=== PATIENT | female | born 1985 | race Caucasian/White ===

== ENCOUNTER → 2024-01-30 | Outpatient (CLI) | payer OTHER ==
--- NOTE | 2024-02-01 09:56 | US ---
EXAMINATION TYPE: US liver DATE OF EXAM: 01/30/2024 COMPARISON: NONE CLINICAL INDICATION: Female, 38 years old with history of R94.5 ABNORMAL RESULTS OF LIVER FUNCTION ST UDIES; TECHNIQUE: Multiple sonographic images of the right upper quadrant are obtained. FINDINGS: EXAM MEASUREMENTS: Liver Length: 13.9 cm Gallbladder Wall: 0.11 cm CBD: 0.28 cm Right Kidney: 10.0 x 4.0 x 3.9 cm SWEET POTATO DISINTEGRATOR NOTES: Pancreas: wnl Liver: Increased echogenicity Gallbladder: wnl Evidence for sonographic Manrique's sign: No CBD: wnl Right Kidney: wnl IMPRESSION: Correlate for mild hepatic steatosis.
== END | disposition home or self-care (01) ==
LOC: RADUSWWP 07:42
PROVIDERS: ATTEND Family Medicine
DX: K76.0 Fatty (change of) liver, not elsewhere classified (principal)
CPT/HCPCS: 76705